=== PATIENT | female | born 1995 | race Caucasian/White ===

== ENCOUNTER 2024-12-08 16:01 | Emergency (ER) | payer BC, SELFPAY ==
[2024-12-08 16:06] VITALS: BP 101/80; PULSE 86; TEMP 36.8; O2SAT 97; BMI 24.6
--- NOTE | 2024-12-08 16:25 | ED_ITS ---
HPI HPI - General Adult General Chief complaint: Headache Stated complaint: HEADACHE Time Seen by Provider: 12/08/24 16:20 Mode of arrival: walk-in History of Present Illness HPI narrative: 28 year old female presents to the ED for a generalized headache. States she has had daily headaches since 2018. She has been referred to a neurologist by her pcp, but has not had the appointment as of today. States she is tired of taking medication as nothing works. States she takes OTC medication for her headaches. She has tried prescription medication in the past, but is unsure of the names of the medications. 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 Related Data Previous Rx's ?Medication ?Instructions ?Recorded zlfaczazmn-fglywxpaznoku-cocvgzlz 1 tab PO Q6H PRN pain 4 days #12 12/08/24 50 mg-325 mg-40 mg tablet tabs Allergies Allergy/AdvReac Type Severity Reaction Status Date / Time No Known Drug Allergies Allergy Verified 12/08/24 16:06 Opioid HPI Opioid Management Most Recent Opioid Data: No Data to Display Review of Systems ROS Constitutional Denies: fever, chills or fatigue Eyes Denies: change in vision or blurry vision Ears, nose, mouth, and throat Denies: throat pain or neck pain Cardiovascular Denies: chest pain Respiratory Denies: shortness of breath Gastrointestinal Reports: nausea; Denies: abdominal pain, vomiting or diarrhea Musculoskeletal Denies: back pain or neck pain Integumentary/Breast Denies: rash Neurological Reports: headache; Denies: numbness in extremities, weakness in extremities, lack of coordination, dizziness or confusion PFSH PFSH Social History Little interest or pleasure in doing things: not at all Feeling down, depressed, or hopeless: not at all Exam Constitutional Vital Signs, click to edit/add: Last Vital Signs Temp 98.2 F 12/08/24 16:06 Pulse 86 12/08/24 16:06 Resp 18 12/08/24 16:06 BP 101/80 12/08/24 16:06 Pulse Ox 97 12/08/24 16:06 Common normals: no apparent distress and oriented x3 General appearance: cooperative HENMT Nose: external nose normal Mouth: oral and palatal mucosa normal Throat: posterior oropharynx normal Eye Common normals: EOMs intact bilaterally, conjunctivae normal and no scleral icterus Neck & C-Spine Common normals: supple and no meningeal signs Chest Chest: symmetrical chest wall rise Respiratory Common normals: normal respiratory effort Effort & inspection: able to speak in complete sentences and symmetric chest movement Cardio Common normals: regular rate Neuro Common normals: oriented x3, CN's II-XII intact bilaterally, moves all extremities and no focal motor deficits Sensorium/orientation: awake Speech: speech normal Gait (neuro): normal gait Course Vital Signs Vital signs: Vital Signs Temperature 98.2 F 12/08/24 16:06 Pulse Rate 86 12/08/24 16:06 Respiratory Rate 18 12/08/24 16:06 Blood Pressure 101/80 12/08/24 16:06 Pulse Oximetry 97 12/08/24 16:06 Temperature 98.2 F 12/08/24 16:06 Pulse Rate 86 12/08/24 16:06 Respiratory Rate 18 12/08/24 16:06 Blood Pressure 101/80 12/08/24 16:06 Pulse Oximetry 97 12/08/24 16:06 Medical Decision Making MDM Narrative Medical decision making narrative: Pt declined a CT scan today. Pt initially declined medication. She was in agreement with Fioricet. O[facility]RS was reviewed. A prescription was provided for Fioricet. Follow up with pcp and with neurology as previously directed by pcp. Return to the ER if condition worsens. Medical Records Medical records reviewed: Yes I reviewed the patient's medical records Discharge Plan Discharge Chief Complaint: Headache Clinical Impression: Headache Patient Disposition: Home, Self-Care Time of Disposition Decision: 16:40 Condition: Good Mode of Transportation: Private Vehicle Prescriptions / Home Meds: New efcjtpjiwb-rdivttnomtjhi-pxpi 50-325-40 mg tablet 1 tab PO Q6H PRN (Reason: pain) 4 Days Qty: 12 0RF Print Language: Stateless Instructions: General Headache (ED) Additional Instructions: Follow up with neurology as previously directed. Return to the ER for worsening symptoms. Referrals: Siobhan Ricketts NP [Primary Care Provider] - 1 week
[2024-12-08] MEDS: BUTALB/ACETAMINOPHEN/CAFFEINE 50-325-40MG TABLET 1 TAB PO (16:36)
== END 2024-12-08 17:07 | disposition home or self-care (01) ==
PROVIDERS: Emergency Provider Emergency Medicine; PCP Nurse Practitioner Family
DX: R51.9 Headache, unspecified (principal)
CPT/HCPCS: 99283